=== PATIENT | female | born 2000 | race Asian ===

== ENCOUNTER 2023-05-07 14:15 | Outpatient (CLI) | payer SELFPAY ==
[~2023-05-07] VITALS: Ht 157.5 cm; Wt 69.8 kg
[2023-05-07 14:37] VITALS: BP 115/70
[2023-05-07] MEDS ORDERED: VITA100T59 PO (14:44)
[2023-05-07] MEDS ORDERED: D-40TAB2 PO (14:44)
[2023-05-07] MEDS ORDERED: HOME MED LIST COMPLETE! XX SCH (14:45)
[2023-05-07] MEDS ORDERED: LR 1,000 ML IV ONE (14:50)
[2023-05-07 16:08] VITALS: BP 119/63
== END 2023-05-07 16:09 | disposition home or self-care (01) ==
LOC: M LDO 14:15
PROVIDERS: ATTEND Advanced Practice Midwife
DX: O99.283 Endocrine, nutritional and metabolic diseases complicating pregnancy, third trimester (principal); E86.0 Dehydration; Z3A.36 36 weeks gestation of pregnancy; O36.8330 Maternal care for abnormalities of the fetal heart rate or rhythm, third trimester, not applicable or unspecified
CPT/HCPCS: 59025; 96360; G0463

== ENCOUNTER 2023-05-25 14:38 | Inpatient (IN) | payer OTHER ==
[2023-05-25] VITALS (35 sets, daily range): BP systolic 116–166; BP diastolic 54–88; O2SAT 96–98
[~2023-05-25] VITALS: Ht 154.9 cm; Wt 72.0 kg
[~2023-05-25 14:38] MED LIST: D-40TAB2 PO; VITA100T59 PO
[2023-05-25] MEDS ORDERED: PRENTAB9 PO (14:55)
[2023-05-25] MEDS ORDERED: FERR325T3 PO (14:56)
[2023-05-25] MEDS ORDERED: HOME MED LIST COMPLETE! XX SCH (15:00)
[2023-05-25] MEDS ORDERED: LACTATED RINGER'S 1000 ML IV STA (15:17)
[2023-05-25] MEDS ORDERED: TRANEXAMIC ACID INJection 1,000 MG in NS 100 ML IV PRN (15:20)
[2023-05-25] MEDS ORDERED: OXYTOCIN DRIP 30 UNITS in IV 1 EA IV PRN ×4 (15:20)
[2023-05-25] MEDS ORDERED: LIDOCAINE 1% MDV 20ML VIAL INFIL PRN (15:20)
[2023-05-25] MEDS ORDERED: METHYLERGONOVINE MALEATE 0.2MG/ML 1ML VIAL IM PRN ×2 (15:20→22:50)
[2023-05-25] MEDS ORDERED: LR 1,000 ML IV SCH (15:20)
[2023-05-25 15:55] LABS: HEMATOCRIT 41.9 % (36.0-47.0); HEMOGLOBIN 14.4 g/dl (12.0-15.5); MEAN CORPUSCULAR HEMOGLOBIN 30.2 pg (27.0-33.0); MEAN CORPUSCULAR HGB CONC 34.4 g/dl (32.0-36.5); MEAN CORPUSCULAR VOLUME 87.8 fl (80.0-96.0); PLATELET COUNT, AUTOMATED 203 10^3/uL (150-450); RED BLOOD COUNT 4.77 10^6/uL (4.00-5.40); WHITE BLOOD COUNT 16.3 10^3/uL (4.0-10.0)
[2023-05-25] MEDS ORDERED: diphenhydrAMINE 50MG/ML VIAL IV PRN (18:15)
[2023-05-25] MEDS ORDERED: ePHEDrine SULFATE 25 MG/5 ML(5MG/ML) SYRINGE IVP PRN (18:15)
[2023-05-25] MEDS ORDERED: ONDANSETRON 4MG 2ML VIAL IV PRN ×2 (18:15→22:50)
[2023-05-25] MEDS ORDERED: FENTANYL/ROPIVACAINE/NACL BAG 100 ML EPIDURAL SCH (18:15)
[2023-05-25] MEDS ORDERED: LR 500 ML IV PRN (18:15)
[2023-05-25] MEDS ORDERED: NALOXONE INJ 0.4MG/1ML VIAL IV PRN (18:15)
[2023-05-25] MEDS ORDERED: EPIDURAL/PCA KEYS XX PRN (18:15)
[2023-05-25] MEDS ORDERED: OXYTOCIN DRIP 30 UNITS in IV 1 EA IV SCH ×2 (22:15→22:50)
[2023-05-25] MEDS ORDERED: METOCLOPRAMIDE INJ 10MG/2ML VIAL IV PRN (22:50)
[2023-05-25] MEDS ORDERED: DIBUCAINE 1% OINTMENT 30GM TOP PRN (22:50)
[2023-05-25] MEDS ORDERED: DOCUSATE SODIUM 100MG CAPSULE PO PRN (22:50)
[2023-05-25] MEDS ORDERED: RHOGAM 300MCG (1500IU) INJ IM SCH (22:50)
[2023-05-26 01:00] VITALS: BP 110/60
[2023-05-26 06:00] VITALS: BP 108/2; O2SAT 99
[2023-05-26 07:06] LABS: HEMATOCRIT 33.3 % (36.0-47.0); MEAN CORPUSCULAR HEMOGLOBIN 30.8 pg (27.0-33.0); MEAN CORPUSCULAR HGB CONC 34.2 g/dl (32.0-36.5); PLATELET COUNT, AUTOMATED 193 10^3/uL (150-450); WHITE BLOOD COUNT 18.3 10^3/uL (4.0-10.0)
[2023-05-26 07:11] LABS: HEMOGLOBIN 11.4 g/dl (12.0-15.5)
[2023-05-26] MEDS: PRENATAL VITAMINS CHEWABLE TABLET PO SCH (07:20)
[2023-05-26] MEDS: ACETAMINOPHEN 500 MG TAB PO SCH ×4 (07:21→18:19)
[2023-05-26] MEDS: IBUPROFEN 800 MG TAB PO SCH ×4 (07:21→22:17)
[2023-05-26] MEDS: LR 1,000 ML IV SCH (07:41)
[2023-05-26] MEDS ORDERED: PRENATAL VITAMINS CHEWABLE TABLET PO SCH (09:00)
[2023-05-26 10:42] VITALS: BP 138/58
[2023-05-26 14:00] VITALS: BP 117/64; O2SAT 97
[2023-05-26 18:00] VITALS: BP 121/75; O2SAT 99
[2023-05-27] MEDS: ACETAMINOPHEN 500 MG TAB PO SCH ×3 (00:25→12:12)
[2023-05-27 06:00] VITALS: BP 103/55; O2SAT 97
[2023-05-27] MEDS: IBUPROFEN 800 MG TAB PO SCH ×2 (06:09→14:00)
[2023-05-27] MEDS: PRENATAL VITAMINS CHEWABLE TABLET PO SCH (08:12)
[2023-05-27] MEDS ORDERED: MEASLES,MUMPS,RUBELLA VACCINE INJ (MMR-II) SC.IMMUN ONE (09:00)
== END 2023-05-27 14:01 | disposition home or self-care (01) | DRG 807 ==
LOC: M LDO 14:38 → M LDI 15:20 → M OBS 05-26 01:06
PROVIDERS: ADMIT Obstetrics & Gynecology; ATTEND Obstetrics & Gynecology
PROC: 10E0XZZ Delivery of Products of Conception, External Approach (ICD-10-PCS; principal; 2023-05-25)
DX: O80 Encounter for full-term uncomplicated delivery (principal); Z37.0 Single live birth; Z3A.39 39 weeks gestation of pregnancy